=== PATIENT | female | born 1950 | race Caucasian/White ===

== ENCOUNTER 2021-10-21 15:14 | Outpatient (CLI) | payer MEDICARE, SELFPAY ==
[2021-10-21 17:29] LABS: Albumin* 4.6 g/dL (3.3-5.0)
[2021-10-21 17:30] LABS: Chloride* 101 mmol/L (96-114); Potassium* 3.6 mmol/L (3.6-5.1); Sodium* 136 mmol/L (135-149)
[2021-10-21 17:32] LABS: Aspartate Amino Transferase* 30 U/L (12-35); Bilirubin Total* 0.6 mg/dL (0.1-1.5); Carbon Dioxide* 26 mmol/L (20-32); Cholesterol* 228 mg/dL (90-199); Creatinine* 0.8 mg/dL (0.5-1.5); Estimated Glomerular Filt Rate 79 ml/min; Total Protein* 7.2 g/dL (6.0-8.3)
[2021-10-21 17:33] LABS: Alanine Aminotransferase* 19 U/L (4-35); Alkaline Phosphatase* 103 U/L (40-150); Blood Urea Nitrogen* 15 mg/dL (7-30); Glucose* 110 mg/dL (60-115); HDL Cholesterol* 65 mg/dL (>=50); LDL Cholesterol Calculated 145 mg/dL (<100); Triglycerides* 87 mg/dL (40-149)
== END 2021-10-21 15:15 | disposition home or self-care (01) ==
PROVIDERS: Visit Provider Family Medicine
DX: Z00.00 Encounter for general adult medical examination without abnormal findings (principal); I10 Essential (primary) hypertension; E66.9 Obesity, unspecified; R73.01 Impaired fasting glucose; Z13.6 Encounter for screening for cardiovascular disorders
CPT/HCPCS: 80053; 80061

== ENCOUNTER 2021-12-10 14:47 | Outpatient (CLI) | payer MEDICARE, SELFPAY ==
--- NOTE | 2021-12-10 15:00 | CRLHL7_ITS ---
For Patients: As a result of the Century Cures Act, medical imaging exams and procedure reports are released immediately into your electronic medical record. You may view this report before your referring provider. If you have questions, please contact your health care provider. LEFT SCREENING MAMMOGRAM WITH COMPUTER-AIDED DETECTION TECHNIQUE: CC and MLO views were obtained. These mammographic images have been obtained using full-field digital technique. These mammographic images were interpreted with the benefit of computer-aided detection. COMPARISON FILM: 11/26/20 MRI, 11/20/20 Rt Diag, 10/13/20 Bilat screen FINDINGS: The breast is almost entirely fatty IMPRESSION: There is no radiographic evidence for malignancy. ASSESSMENT: BI-RADS Category 1: Negative RECOMMENDATION: Routine screening mammogram in 1 year. A lay language report of this examination will be provided to the patient. José Kaiser M.D. Diagnostic Radiologist [email or web address] AYE/Dictated by: José Kaiser MD @ 12/14/2021 9:18:00 AM (Electronically Signed)
== END 2021-12-10 14:48 | disposition home or self-care (01) ==
LOC: MAMMO 14:47
PROVIDERS: PCP Family Medicine; Visit Provider Family Medicine
DX: Z12.31 Encounter for screening mammogram for malignant neoplasm of breast (principal)
CPT/HCPCS: 77063; 77067

== ENCOUNTER 2022-01-13 09:51 | Outpatient (RCR) | payer MEDICARE, SELFPAY ==
[2022-01-13 10:25] LABS: Chloride* 102 mmol/L (96-114)
[2022-01-13 10:26] LABS: Albumin* 4.7 g/dL (3.3-5.0); Potassium* 3.6 mmol/L (3.6-5.1); Sodium* 136 mmol/L (135-149)
[2022-01-13 10:29] LABS: Alanine Aminotransferase* 17 U/L (4-35); Alkaline Phosphatase* 111 U/L (40-150); Aspartate Amino Transferase* 28 U/L (12-35); Bilirubin Total* 0.6 mg/dL (0.1-1.5); Blood Urea Nitrogen* 10 mg/dL (7-30); Calcium* 10.1 mg/dL (8.4-10.6); Carbon Dioxide* 25 mmol/L (20-32); Creatinine* 0.7 mg/dL (0.5-1.5); Estimated Glomerular Filt Rate 92 ml/min; Glucose* 118 mg/dL (60-115); Total Protein* 8.2 g/dL (6.0-8.3)
--- NOTE | 2022-03-29 14:35 | ONC.NURNOTE ---
Patient called office to let us know that pharmacy has been trying to contact us to fill her prescription. No notificiations found and it shows that [facility] [facility] [employer] transmitted order on 01/13/2022. Order was verbally called to [facility] as written in computer, as they are unable to grab the order per pharmacist.
== END 2022-07-12 23:59 | disposition home or self-care (01) ==
LOC: CCIC 09:51
PROVIDERS: PCP Family Medicine; Visit Provider Nurse Practitioner Family
DX: C50.911 Malignant neoplasm of unspecified site of right female breast (principal); Z17.0 Estrogen receptor positive status [ER+]; F41.9 Anxiety disorder, unspecified
CPT/HCPCS: 36415; 80053; 99212; 99214

== ENCOUNTER 2022-08-15 12:42 | Outpatient (RCR) | payer MEDICARE, SELFPAY ==
[2022-08-15 14:07] LABS: Albumin* 4.8 g/dL (3.3-5.0); Chloride* 101 mmol/L (96-114)
[2022-08-15 14:08] LABS: Potassium* 3.8 mmol/L (3.6-5.1); Sodium* 138 mmol/L (135-149)
[2022-08-15 14:10] LABS: Alkaline Phosphatase* 94 U/L (40-150); Aspartate Amino Transferase* 31 U/L (12-35); Bilirubin Total* 0.5 mg/dL (0.1-1.5); Blood Urea Nitrogen* 12 mg/dL (7-30); Carbon Dioxide* 26 mmol/L (20-32); Creatinine* 0.7 mg/dL (0.5-1.5); Estimated Glomerular Filt Rate 92 ml/min; Total Protein* 8.1 g/dL (6.0-8.3)
[2022-08-15 14:11] LABS: Alanine Aminotransferase* 21 U/L (4-35); Glucose* 109 mg/dL (60-115)
== END 2023-02-11 23:59 | disposition home or self-care (01) ==
LOC: CCIC 12:42
PROVIDERS: Internal Medicine Hematology & Oncology; PCP Family Medicine; Visit Provider Physician Assistant
DX: C50.911 Malignant neoplasm of unspecified site of right female breast (principal); Z17.0 Estrogen receptor positive status [ER+]; Z79.811 Long term (current) use of aromatase inhibitors; F41.9 Anxiety disorder, unspecified
CPT/HCPCS: 36415; 80053; 99212; 99214

== ENCOUNTER 2022-12-14 12:43 | Outpatient (CLI) | payer MEDICARE, SELFPAY ==
--- NOTE | 2022-12-14 13:00 | CRLHL7_ITS ---
For Patients: As a result of the Century Cures Act, medical imaging exams and procedure reports are released immediately into your electronic medical record. You may view this report before your referring provider. If you have questions, please contact your health care provider. LEFT SCREENING MAMMOGRAM WITH COMPUTER-AIDED DETECTION TECHNIQUE: CC and MLO views were obtained. These mammographic images have been obtained using full-field digital technique. These mammographic images were interpreted with the benefit of computer-aided detection. COMPARISON FILM: 12/10/21, 11/02/20. FINDINGS: There are scattered areas of fibroglandular density IMPRESSION: There is no radiographic evidence for malignancy. ASSESSMENT: BI-RADS Category 1: Negative RECOMMENDATION: Routine screening mammogram in 1 year. A lay language report of this examination will be provided to the patient. José Kaiser M.D. Diagnostic Radiologist [email or web address] AYE/Dictated by: José Kaiser MD @ 12/15/2022 8:37:00 AM (Electronically Signed)
--- NOTE | 2022-12-14 13:30 | CRLHL7_ITS ---
For Patients: As a result of the Century Cures Act, medical imaging exams and procedure reports are released immediately into your electronic medical record. You may view this report before your referring provider. If you have questions, please contact your health care provider. DXA BONE MINERAL DENSITY STUDY Reason for exam: Prophylactic use of aromatase inhibitors. Current height (in): 63.0 Weight (lb): 200. Menopause age: 51. Ethnicity: White. 1. Have you had a previous hip or vertebral fracture? No. 2. Have you had any fractures during your adult life which did not result from significant trauma (e.g., auto accident)? No. 3. Did either of your parents have a hip fracture? No. 4. Do you smoke? No. 5. Have you ever taken Glucocorticoids? No. 6. Do you have rheumatoid arthritis? No. 7. Do you have secondary osteoporosis? No. 8. Do you drink 3 or more alcoholic drinks per day? No. 9. Are you being treated for osteoporosis? No. 10. Have you ever taken any of the following medications: Actonel, Evista, Fosamax, Miacalcin, Reclast, Boniva, Forteo, HRT (i.e. estrogen/hormone therapy), Protelos, Prolia, Vitamin D, Calcium, other ??? please specify. ANSWER: Yes, Vitamin D and calcium. 11. Do you have any of the following medical conditions: Anorexia or bulimia, asthma or emphysema, end stage renal disease, hyperparathyroidism, any seizure disorders, cancer, inflammatory bowel diseases, hysterectomy, other ??? please specify. ANSWER: Yes, uterus removed, cancer. 12. What was your maximum height (inches)? 65. 13. Do you perform weight bearing exercise regularly? Yes. 14. Do you regularly consume dairy products? Yes. 15. Do you drink caffeinated beverages? No. 16. At what age did your period start? 12. 17. Are you premenopausal? No. 18. How many full term pregnancies have you had? 1. 19. Have you ever missed your period for more than 6 months in a row (not including or menopause)? No. TECHNIQUE: Bone mineral density study was performed using the [employer]. FINDINGS: The results of the study expressed as bone mineral density (BMD) are as follows: Lumbar spine L1 to L4: BMD: 1.202 g/cm2. T-score: 1.4. Z-score: 3.7. Neck Left: BMD: 0.717 g/cm2. T-score: -1.2. Z-score: 0.8. Right: BMD: 0.757 g/cm2. T-score: -0.8. Z-score: 1.1. Total Left: BMD: 0.990 g/cm2. T-score: 0.4. Z-score: 2.1. Right: BMD: 0.878 g/cm2. T-score: -0.5. Z-score: 1.1. IMPRESSION: Osteopenia. *Comparison exams done prior to 09/2019 were performed on different unit, [employer]. COMPARISON: Compared with scan of 01/07/2021, the bone mineral density has decreased by 3.2 percent at the spine and decreased by 5.7 percent at the right hip and decreased by 6.2 percent at the left hip. FRAX (LEFT HIP) 10-year Fracture Risk Major Osteoporotic Fracture: 9.2 percent Hip Fracture: 1.3 percent Reported Risk Factors: [place] () Neck BMD=0.717, BMI=35.4 José Kaiser M.D. Diagnostic Radiologist [email or web address] DSM/pjt PT/Dictated by: José Kaiser MD @ 12/15/2022 9:15:00 AM (Electronically Signed)
== END 2022-12-14 12:44 | disposition home or self-care (01) ==
LOC: MAMMO 12:45
PROVIDERS: PCP Family Medicine; Visit Provider Physician Assistant
DX: Z12.31 Encounter for screening mammogram for malignant neoplasm of breast; Z79.811 Long term (current) use of aromatase inhibitors; M85.88 Other specified disorders of bone density and structure, other site
CPT/HCPCS: 77063; 77067; 77080

== ENCOUNTER 2023-02-27 10:15 | Outpatient (RCR) | payer MEDICARE, SELFPAY | END 2023-08-26 23:59 | disposition home or self-care (01) | LOC: CCIC 10:15 | PROVIDERS: PCP Family Medicine; Visit Provider Physician Assistant | DX: C50.911 Malignant neoplasm of unspecified site of right female breast (principal); Z17.0 Estrogen receptor positive status [ER+]; Z79.811 Long term (current) use of aromatase inhibitors; M85.80 Other specified disorders of bone density and structure, unspecified site; I10 Essential (primary) hypertension; F41.9 Anxiety disorder, unspecified | CPT/HCPCS: 99212; 99214; 99215 ==

== ENCOUNTER 2023-08-15 08:48 | Outpatient (CLI) | payer MEDICARE, SELFPAY | END 2023-08-15 08:49 | disposition home or self-care (01) | PROVIDERS: PCP Family Medicine; Visit Provider Family Medicine | DX: E78.5 Hyperlipidemia, unspecified (principal); I10 Essential (primary) hypertension; M81.0 Age-related osteoporosis without current pathological fracture | CPT/HCPCS: 80053; 80061; 82306 ==

== ENCOUNTER 2023-12-18 13:20 | Outpatient (CLI) | payer MEDICARE, SELFPAY ==
--- NOTE | 2023-12-18 13:20 | CRLHL7_ITS ---
For Patients: As a result of the Century Cures Act, medical imaging exams and procedure reports are released immediately into your electronic medical record. You may view this report before your referring provider. If you have questions, please contact your health care provider. BILATERAL SCREENING MAMMOGRAM WITH COMPUTER-AIDED DETECTION AND TOMOSYNTHESIS TECHNIQUE: CC and MLO views were obtained. These mammographic images have been obtained using full-field digital technique. These mammographic images were interpreted with the benefit of computer-aided detection. Breast Tomosynthesis was used in this interpretation. COMPARISON FILM: 12/14/22, 12/10/21, 11/20/20. FINDINGS: There are scattered areas of fibroglandular density IMPRESSION: There is no radiographic evidence for malignancy. ASSESSMENT: BI-RADS Category 1: Negative RECOMMENDATION: Routine screening mammogram in 1 year. A lay language report of this examination will be provided to the patient. José Kaiser M.D. Diagnostic Radiologist [email or web address] VERITO/[email or web address] Transcribed: 3:04 [email or web address] curry/Dictated by: José Kaiser MD @ 12/19/2023 8:56:00 AM (Electronically Signed)
== END 2023-12-18 13:21 | disposition home or self-care (01) ==
LOC: MAMMO 13:21
PROVIDERS: PCP Family Medicine; Visit Provider Family Medicine
DX: Z12.31 Encounter for screening mammogram for malignant neoplasm of breast (principal)
CPT/HCPCS: 77063; 77067

== ENCOUNTER 2024-04-18 12:37 | Outpatient (RCR) | payer MEDICARE, SELFPAY | END 2024-10-15 23:59 | disposition home or self-care (01) | LOC: CCIC 12:37 | PROVIDERS: PCP Family Medicine; Visit Provider Physician Assistant | DX: C50.911 Malignant neoplasm of unspecified site of right female breast (principal); Z17.0 Estrogen receptor positive status [ER+]; M85.80 Other specified disorders of bone density and structure, unspecified site; Z79.811 Long term (current) use of aromatase inhibitors; Z90.11 Acquired absence of right breast and nipple | CPT/HCPCS: 99213; 99214; G0463 ==

== ENCOUNTER 2024-12-31 17:02 | Outpatient (CLI) | payer MEDICARE, SELFPAY ==
--- NOTE | 2024-12-31 17:20 | CRLHL7_ITS ---
For Patients: As a result of the Century Cures Act, medical imaging exams and procedure reports are released immediately into your electronic medical record. You may view this report before your referring provider. If you have questions, please contact your health care provider. INDICATION: LEFT SCREENING MAMMOGRAM, ASYMPTOMATIC 74 Y/O F COMPARISON: 12/18/23, 12/14/22, 12/10/21 TECHNIQUE: Digital mammogram in CC and MLO projections including computer-aided detection (CAD) and tomosynthesis. BREAST COMPOSITION: There are scattered areas of fibroglandular density. FINDINGS: No suspicious findings. ASSESSMENT: BI-RADS 1 Negative RECOMMENDATION: Annual screening mammogram. A lay language report of this examination will be provided to the patient. Dictated by: Angela Strickland MD @ 01/01/2025 13:21:20 (Electronically Signed)
== END 2024-12-31 17:03 | disposition home or self-care (01) ==
LOC: MAMMO 17:03
PROVIDERS: Visit Provider Physician Assistant
DX: Z12.31 Encounter for screening mammogram for malignant neoplasm of breast (principal)
CPT/HCPCS: 77063; 77067